=== PATIENT | male | born 1955 ===

== ENCOUNTER → 2017-05-26 | Outpatient (CLI) | payer MEDICAID ==
[~2017-05-26] MED LIST: CLOPIDOGREL BISULFATE 75 MG TABLET; DIAZEPAM 10 MG TABLET.; HEPARIN SODIUM 5,000 UNIT/ML VIAL for PCVC.; IOHEXOL 350 MG/ML 100 ML VIAL.; IOHEXOL 350 MG/ML 50 ML VIAL.; IV NORMAL SALINE 1000ML BAG 1,000 ML; LIDOCAINE 1% Multi-Dose 50 ML VIAL.; MIDAZOLAM HCL/PF 2 MG/2 ML VIAL.; NITROGLYCERIN SUBLINGUAL 0.4 MG BOTTLE OF 25. SL; fentaNYL PF VIAL 100 MCG/2 ML VIAL
== END | disposition home or self-care (01) ==
LOC: PCVCIMAG 10:05
DX: I25.10 Atherosclerotic heart disease of native coronary artery without angina pectoris (principal); I70.203 Unspecified atherosclerosis of native arteries of extremities, bilateral legs; I10 Essential (primary) hypertension; E11.9 Type 2 diabetes mellitus without complications; I70.1 Atherosclerosis of renal artery; I65.23 Occlusion and stenosis of bilateral carotid arteries
CPT/HCPCS: 36245; 36252; 75630; 76937; 93306; 93458; 93880; C1751; C1769; C1894; J1644; J2250; J3010; J7030; Q9967